=== PATIENT | female | born 1960 | race African-American/Black ===

== ENCOUNTER 2019-01-07 16:51 | Emergency (ER) | payer MEDICAID ==
[~2019-01-07] VITALS: Ht 172.7 cm; Wt 86.2 kg
[~2019-01-07 16:51] MED LIST: ASPI-231 PO; CLON0.2T PO
[2019-01-07] MEDS ORDERED: cloNIDine HCL 0.1 MG TAB ONE (17:01)
[2019-01-07] MEDS ORDERED: cloNIDine HCL 0.1 MG TAB PO ONE (17:15)
[2019-01-07 17:41] LABS: Basophils # (auto) 0.1 uL; Eosinophils # (auto) 0.1 uL; Eosinophils % (auto) 1.5 % (0.0-7.0); Hematocrit 38.5 % (36.0-46.0); Hemoglobin 12.9 g/dL (12.2-16.2); Lymphocytes # (auto) 2.2 uL; Lymphocytes % (auto) 35.4 % (10.0-50.0); Mean Corpuscular Hemoglobin 31.1 pg (28.0-32.0); Mean Corpuscular Hgb Conc. 33.4 g/dL (32.0-36.0); Monocytes # (auto) 0.6 uL; Monocytes % (auto) 9.9 % (0.0-12.0); Neutrophils # (auto) 3.2 uL; Neutrophils % (auto) 52.2 % (37.0-80.0); Nucleated Red Blood Cells % 0.1 %; Platelet Count (auto) 260 10^3/uL (140-450); Red Blood Cells 4.14 10^6/uL (4.0-5.20); Red Cell Distribution Width 14.5 % (11.8-14.3); White Blood Cell 6.1 10^3/uL (4.4-10.8)
[2019-01-07 17:57] LABS: Albumin 3.1 g/dL (3.4-5.0); Anion Gap 8 (5-15); Blood Urea Nitrogen 21 mg/dL (7-18); Calcium 8.9 mg/dL (8.5-10.1); Carbon Dioxide 23 mmol/L (21-32); Chloride 112 mmol/L (98-107); Glucose 70 mg/dL (74-106); Potassium 4.3 mmol/L (3.5-5.1); Sodium 143 mmol/L (136-145)
[2019-01-07 17:59] LABS: Alanine Aminotransferase 29 U/L (13-56); Aspartate Aminotransferase 25 U/L (15-37); BUN/Creatinine Ratio 17.6; GFR African American 60 mL/min; GFR Non-African American 50 mL/min
[2019-01-07 18:04] LABS: Alkaline Phosphatase 134 U/L (45-117); Bilirubin, Total 0.3 mg/dL (0.2-1.0); Total Protein 7.9 g/dL (6.4-8.2)
[2019-01-08] MEDS ORDERED: cloNIDine HCL 0.1 MG TAB PO ONE ×2 (00:45→02:30)
[2019-01-08 04:27] LABS: Urine Bacteria MANY /hpf (None Seen); Urine Blood Negative /uL (Negative); Urine Specific Gravity 1.023 (1.001-1.035); Urine WBC 104 /hpf (0 - 5)
[2019-01-08] MEDS ORDERED: cefTRIAXone W LIDOCAINE 1 GM IM IM ONE (05:00)
[2019-01-08] MEDS ORDERED: cefTRIAXone SOD 1,000 MG VL IM ONE (05:15)
[2019-01-08 05:49] VITALS: BP 191/89
== END 2019-01-08 06:16 | disposition home or self-care (01) ==
LOC: EDBD 16:51 → ER 17:02
DX: K29.00 Acute gastritis without bleeding (principal); K86.1 Other chronic pancreatitis; F17.210 Nicotine dependence, cigarettes, uncomplicated; Z79.82 Long term (current) use of aspirin; Z79.899 Other long term (current) drug therapy
CPT/HCPCS: 36415; 74176; 80053; 81001; 83690; 84484; 85025; 93005; 96372; 99284; J0696